=== PATIENT | male | born 1960 | race Caucasian/White ===

== ENCOUNTER → 2017-01-01 | Outpatient (REF) | payer OTHER | LOC: M SFHCCLAY 11:19 | PROVIDERS: ATTEND Family Medicine | DX: R30.9 Painful micturition, unspecified (principal) ==

== ENCOUNTER → 2025-07-01 | Outpatient (CLI) | payer MEDICARE, OTHER ==
[2025-07-01 12:10] VITALS: TEMP 97.8
[2025-07-01] MEDS: LIDOCAINE 1% MDV 20 ML VIAL SC STA (13:16)
[2025-07-01 14:30] VITALS: BP 119/75; O2SAT 97
== END ==
LOC: M IRPRO 11:51
PROVIDERS: ATTEND Internal Medicine Critical Care Medicine
DX: C34.2 Malignant neoplasm of middle lobe, bronchus or lung (principal); R91.8 Other nonspecific abnormal finding of lung field

== ENCOUNTER → 2025-07-27 | Outpatient (CLI) | payer MEDICARE, OTHER ==
[~2025-07-27] MED LIST: AMLO1TAB25; ASPI81CH33 PO; MULT-90 PO
== END ==
LOC: M PLAIMG 14:11
PROVIDERS: ATTEND Surgery
DX: C34.2 Malignant neoplasm of middle lobe, bronchus or lung (principal); R91.1 Solitary pulmonary nodule

== ENCOUNTER → 2025-11-03 | Outpatient (CLI) | payer MEDICARE, OTHER ==
[~2025-11-03] MED LIST changes: +ACET1TAB55; +ALPR0.25 PO; +DEXA4TA PO; +FOLI1TAB11 PO; +METH-1164; +ONDA-284 PO; +PROC10TA5 PO
== END ==
LOC: M ONCR 12:39
PROVIDERS: ATTEND General Practice
DX: C34.2 Malignant neoplasm of middle lobe, bronchus or lung (principal); J30.2 Other seasonal allergic rhinitis; Z79.82 Long term (current) use of aspirin; Z79.899 Other long term (current) drug therapy; Z87.891 Personal history of nicotine dependence; Z90.2 Acquired absence of lung [part of]